=== PATIENT | female | born 1945 | race Caucasian/White ===

== ENCOUNTER 2017-05-18 12:40 | Emergency (ER) | payer MEDICARE ==
[~2017-05-18] VITALS: Ht 165.1 cm; Wt 57.5 kg
[2017-05-18 12:42] VITALS: BP 217/85; PULSE 87; RESP 18; TEMP 98.2; O2SAT 95
--- NOTE | 2017-05-18 14:12 | PD ---
HPI Chief Complaint: Musculoskeletal Complaint Time Seen by Provider: 14:16 Travel History International Travel<30 days: No Contact w/Intl Traveler<30days: No Traveled to known affect area: No History of Present Illness HPI 71-year-old female presents immersed from his right foot and ankle pain since last night. State she accidently walked off of a driveway and rolled her ankle. States her foot and ankle are mildly tender and painful. Pain increases with weight-bearing, decreases with off-loading. Denies numbness or tingling but admits to a history of brain tumors resulting in altered sensations of the right side of her body. Patient does have full range of motion but with tenderness. Denies injuries elsewhere. Denies head trauma, LOC, neck or back pain. PFSH Social History Tobacco Use: No Allergies-Medications (Allergen,Severity, Reaction): Coded Allergies: No Known Allergies (Unverified , 05/18/17) Reported Meds & Prescriptions Reported Meds & Active Scripts Active Reported Meloxicam 15 Mg Tab 15 Mg PO DAILY Onfi (Clobazam) 10 Mg Tab 10 Mg PO BID Levetiracetam 500 Mg Tab 1,000 Mg PO DAILY Review of Systems Except as stated in HPI: all other systems reviewed are Neg Physical Exam Narrative GENERAL: Well-nourished, well-developed patient. SKIN: Focused skin assessment warm/dry. HEAD: Normocephalic. EYES: No scleral icterus. No injection or drainage. NECK: Supple, trachea midline. No JVD or lymphadenopathy. CARDIOVASCULAR: Regular rate and rhythm without murmurs, gallops, or rubs. RESPIRATORY: Breath sounds equal bilaterally. No accessory muscle use. MUSCULOSKELETAL: No cyanosis, or edema. Right lower extremities- edema of the lateral malleolus, mild ecchymosis over this area. TTP to the posterior talofibular ligament. Full range of motion without restriction or laxity. Small 2 cm abrasion over the lateral fifth metatarsal. No significant erythema, deformities. Neurovascularly intact- patient denies changes to her normal sensation status. BACK: Nontender without obvious deformity. No CVA tenderness. Data Data Last Documented VS Vital Signs Date Time Temp Pulse Resp B/P (MAP) Pulse Ox O2 Delivery O2 Flow Rate FiO2 05/18/17 12:42 98.2 87 18 217/85 (129) 95 Room Air Orders Orders Foot, Complete ([id number]) (05/18/17 ) Ankle, Complete ([id number]) (05/18/17 ) Splint Or Brace Apply/Monitor (05/18/17 14:18) Ed Discharge Order (05/18/17 14:18) MDM Medical Decision Making Medical Screen Exam Complete: Yes Emergency Medical Condition: Yes Differential Diagnosis Right ankle sprain, strain, fracture. Right foot contusion, fracture, abrasion Narrative Course 71-year-old female presents immersed from his right foot and ankle pain since last night. State she accidently walked off of a driveway and rolled her ankle. States her foot and ankle are mildly tender and painful. Pain increases with weight-bearing, decreases with off-loading. Denies numbness or tingling but admits to a history of brain tumors resulting in altered sensations of the right side of her body. Patient does have full range of motion but with tenderness. Denies injuries elsewhere. Denies head trauma, LOC, neck or back pain. Vital signs stable. Last Impressions Foot X-Ray 05/18/17 0000 Signed Impressions: Service Date/Time: Thursday, May 18, 2017 13:32 - CONCLUSION: 1. No acute fracture or dislocation. Nile Mohr MD Ankle X-Ray 05/18/17 0000 Signed Impressions: Service Date/Time: Thursday, May 18, 2017 13:28 - CONCLUSION: 1. No acute fracture or dislocation. Nile Mohr MD Stirrup splint applied and Pola wrap for comfort. Advised she may use Tylenol or Motrin per package instructions as long there are no contraindications for use. Advised the usual course of her injury. This may take weeks for symptom resolution. Advised to follow up with primary care physician within 2-3 days. Consider orthopedics or podiatry for follow-up. If symptoms persist or worsen return to the emergency department. Diagnosis Primary Impression: Ankle sprain Qualified Codes: S93.401A - Sprain of unspecified ligament of right ankle, initial encounter Additional Impression: Foot contusion Qualified Codes: S90.31XA - Contusion of right foot, initial encounter Referrals: [facility] Primary Care Physician Additional Instructions: Use ice or heat for symptom relief. Elevate the joint above the heart to reduce swelling. You may use compression with Pola wrap or similar to reduce swelling. If symptoms persist or worsen, return to the emergency department. Follow up with your primary care physician within 2 days. Disposition: 01 DISCHARGE HOME Condition: Stable [place] White May 18, 2017 14:12
--- NOTE | 2017-05-18 14:12 | RADRPT ---
EXAM DATE/TIME: 05/18/2017 13:28 [facility] COMPARISON: No previous studies available for comparison. INDICATIONS : Fell into a hold last night, pain and swelling lateral side of right ankle MEDICAL HISTORY : brain tumor, seizure, right side paralysis SURGICAL HISTORY : Craniotomy. ENCOUNTER: Initial ACUITY: 1 day PAIN SCORE: 10/10 LOCATION: Right ankle FINDINGS: Osseous structures are intact. Talar dome is intact. Joint spaces are maintained. Soft tissue promine nce overlying the lateral malleolus. CONCLUSION: 1. No acute fracture or dislocation. Nile Mohr MD on May 18, 2017 at 13:59 Board Certified Radiologist. This report was verified electronically.
--- NOTE | 2017-05-18 14:13 | RADRPT ---
EXAM DATE/TIME: 05/18/2017 13:32 [facility] COMPARISON: No previous studies available for comparison. INDICATIONS : Fell in a hole last night, pain lateral side of right foot and ankle MEDICAL HISTORY : brain tumor, seizure, right side paralysis SURGICAL HISTORY : Craniotomy. ENCOUNTER: Initial ACUITY: 1 day PAIN SCORE: 10/10 LOCATION: Right foot and ankle FINDINGS: Three view examination of the right foot demonstrates no soft tissue swelling, dislocation, or fractu re. The tarsal bones appear intact. The interphalangeal and metatarsophalangeal joints are intact. The calcaneus is intact. Bony mineralization is normal. CONCLUSION: 1. No acute fracture or dislocation. Nile Mohr MD on May 18, 2017 at 14:11 Board Certified Radiologist. This report was verified electronically.
[2017-05-18] MEDS ORDERED: LEVE500T8 PO (14:14)
[2017-05-18] MEDS ORDERED: MELO15TA20 PO (14:14)
[2017-05-18] MEDS ORDERED: ONFI10TA PO (14:14)
== END 2017-05-18 14:42 | disposition home or self-care (01) ==
LOC: NEPK 12:40
DX: S93.401A Sprain of unspecified ligament of right ankle, initial encounter (principal); S90.31XA Contusion of right foot, initial encounter; X50.1XXA Overexertion from prolonged static or awkward postures, initial encounter; Z79.899 Other long term (current) drug therapy
CPT/HCPCS: 29515; 73610; 73630; 99283; L1906